=== PATIENT | female | born 1950 | race Hispanic/Latino ===

== ENCOUNTER → 2024-11-20 | Outpatient (CLI) | payer MEDICARE ==
[~2024-11-20] MED LIST: ASPI-1443 PO; ATOR40TA69 PO; CLOP75TA32 PO; DOXA4TAB3 PO; FURO40TA5 PO; LEVO75CA6 PO; LOSA50TA64 PO; METO50 PO
--- NOTE | 2024-11-20 12:32 | HMCIMG ---
TOMOGRAM REASON: CALCULUS OF KIDNEY. COMPARISON: None TECHNIQUE: 5 tomographic images of the kidneys were obtained. FINDINGS: Left percutaneous nephrostomy tube is seen. There are at least 2 3 mm right lower pole renal stones. Left renal stones cannot be completely excluded. IMPRESSION: Findings as described above.
--- NOTE | 2024-11-20 12:34 | HMCIMG ---
ABD 1VW HISTORY: Renal stone COMPARISON: None FINDINGS: A frontal projection of the abdomen was obtained. A nonspecific bowel gas pattern is seen. Fecal material is seen in the colon. Left percutaneous nephrostomy tube is seen. There may be tiny bilateral renal pelvic stones obscured by overlying fecal material. Degenerative changes of the thoracolumbar spine are noted. IMPRESSION: 1. A nonspecific bowel gas pattern is seen.
== END | disposition home or self-care (01) ==
LOC: RAH 10:28
PROVIDERS: ATTEND Urology
DX: N20.0 Calculus of kidney (principal); M47.815 Spondylosis without myelopathy or radiculopathy, thoracolumbar region; Z93.6 Other artificial openings of urinary tract status
CPT/HCPCS: 74018; 76100